=== PATIENT | female | born 1985 | race Caucasian/White ===

== ENCOUNTER 2018-06-11 20:48 | Emergency (ER) | payer MEDICAID ==
[2018-06-11 21:11] LABS: BILIRUBIN,URINE NEGATIVE (NEGATIVE); CLARITY,URINE CLOUDY (CLEAR); GLUCOSE, URINE (UA) NEGATIVE (NEGATIVE); HCG UR QUAL NEGATIVE; KETONES,URINE (UA) NEGATIVE (NEGATIVE); LEUKOCYTE ESTERASE, URINE MODERATE (NEGATIVE); NITRITE,URINE NEGATIVE (NEGATIVE); OCCULT BLOOD,URINE MODERATE (NEGATIVE); PROTEIN,URINE TRACE mg/dL (NEGATIVE); UROBILINOGEN,URINE 1 (NORMAL) E.U./dL (NORMAL)
[2018-06-11 21:15] LABS: BACTERIA,URINE Few /HPF (None Seen); SQUAMOUS EPITHELIAL CELL,UR FEW Squamous (<= Few)
--- NOTE | 2018-06-11 22:38 | ED Physician Documentation ---
PD HPI FEMALE - Stated complaint Stated Complaint: LOW BACK PX - Chief complaint Chief Complaint: Abd Pain - History obtained from History obtained from: Patient - History of Present Illness Timing - onset: Yesterday Timing - details: Gradual onset Pain level max: 8 Associated symptoms: Fever (subjective (sweats, chills, but has not taken temp. at home)), Pelvic pain, Dysuria, Urinary frequency Contributing factors: No: Similar symptoms before: Has not had sx before Recently seen: Not recently seen Review of Systems Constitutional: reports: Fever (subjective), Chills GI: reports: Abdominal Pain (pelvic pain, but not abdominal pain per se), Nausea. denies: Vomiting : reports: Dysuria, Frequency Musculoskeletal: denies: Back pain PD PAST MEDICAL HISTORY - Past Medical History Past Medical History: Yes Cardiovascular: None Respiratory: None Neuro: None Endocrine/Autoimmune: None GI: None RADIOGRAPHIC TECHNOLOGIST: None : Chronic bladder infection HEENT: None Psych: None Musculoskeletal: None Derm: None - Present Medications Home Medications: Ambulatory Orders Medication Instructions Recorded Confirmed Ciprofloxacin HCl [Cipro] 500 mg PO BID #20 tablet 06/12/18 Phenazopyridine [Pyridium] 200 mg PO TID 6 Days tablet 06/12/18 oxyCODONE/ACET 5/325 [Percocet 5 1 - 2 each PO Q6H PRN #14 tablet 06/12/18 mg/325 mg] - Allergies Allergies/Adverse Reactions: Allergies Allergy/AdvReac Type Severity Reaction Status Date / Time No Known Drug Allergies Allergy Verified 06/11/18 20:54 - Social History Does the pt smoke?: No Smoking Status: Never smoker Does the pt drink ETOH?: Yes Does the pt have substance abuse?: No - Immunizations Immunizations are current?: Yes - POLST Patient has POLST: No PD ED PE NORMAL - Vitals Vital signs reviewed: Yes - General General: Alert and oriented X 3, No acute distress, Well developed/nourished - Cardiac Cardiac: RRR, No murmur - Respiratory Respiratory: No respiratory distress, Clear bilaterally - Abdomen Abdomen: Normal bowel sounds, Soft, Non tender, Non distended - Back Back: Other (mild R>L CVA tenderness) - Derm Derm: Normal color, Warm and dry, No rash Results - Vitals Vitals: Oxygen O2 Source Room air - Labs Labs: Microbiology 06/11/18 21:00 Urine Culture - Preliminary Urine,Clean Catch Escherichia Coli Beta Hemolytic Strep Group B Laboratory Tests 06/11/18 21:00 Urine Color YELLOW Urine Clarity CLOUDY Urine pH 8.0 H Ur Specific [place] 1.015 Urine Protein TRACE Urine Glucose (UA) NEGATIVE Urine Ketones NEGATIVE Urine Occult Blood MODERATE H Urine Nitrite NEGATIVE Urine Bilirubin NEGATIVE Urine Urobilinogen 1 (NORMAL) Ur Leukocyte Esterase MODERATE H Urine RBC 6-10 H Urine WBC >25 H Ur Squamous Epith Cells FEW Squamous Urine Bacteria Few Ur Microscopic Review INDICATED Urine Culture Comments INDICATED Urine HCG, Qual NEGATIVE PD MEDICAL DECISION MAKING - ED course Complexity details: reviewed results, re-evaluated patient, considered differential, d/w patient, d/w family - Sepsis Event Vital Signs: Oxygen O2 Source Room air Departure - Departure Disposition: 01 Home, Self Care Clinical Impression: Urinary tract infection Condition: Good Instructions: ED UTI Cystitis Female Prescriptions: Ciprofloxacin HCl [Cipro] 500 mg PO BID #20 tablet oxyCODONE/ACET 5/325 [Percocet 5 mg/325 mg] 1 - 2 each PO Q6H PRN #14 tablet PRN Reason: Pain Phenazopyridine [Pyridium] 200 mg PO TID 6 Days tablet Discharge Date/Time: 06/12/18 01:10
[2018-06-11] MEDS ORDERED: PHENAZOPYRIDINE 100 MG TABLET PO STA (22:53)
[2018-06-11] MEDS ORDERED: KETOROLAC 60 MG/2 ML VIAL IVP STA (22:53)
[2018-06-11] MEDS ORDERED: cefTRIAXone 1 GM in SODIUM CHLORIDE 0.9% MINIBAG 100 ML IV STA (22:53)
[2018-06-11] MEDS ORDERED: MORPHINE 10 MG/ML VIAL IVP STA (22:54)
[2018-06-12] MEDS ORDERED: MORPHINE 10 MG/ML VIAL IVP STA (00:32)
[2018-06-12] MEDS ORDERED: oxyCODONE/ACET 5/325 Prepack 4 PO STA (00:32)
[2018-06-12 01:31] VITALS: BP 168/95
== END 2018-06-12 01:10 | disposition home or self-care (01) ==
LOC: ED 20:48 → EEVIPCON 20:48 → ED 06-12 01:10
DX: N39.0 Urinary tract infection, site not specified (principal)
CPT/HCPCS: 81001; 81025; 87077; 87086; 87181; 96365; 96375; 96376; 99284; A9270; 81003

== ENCOUNTER 2023-02-02 21:22 | Outpatient (CLI) | payer MEDICAID | END 2023-02-02 21:23 | disposition critical access hospital (66) | LOC: EMS 21:22 | DX: I46.9 Cardiac arrest, cause unspecified (principal) | CPT/HCPCS: A0425; A0427; A0999 ==

== ENCOUNTER 2023-02-02 21:45 | Emergency (ER) | payer MEDICAID ==
[2023-02-02] MEDS ORDERED: hydrOXYzine PAMOATE 25 MG CAPSULE PO STA (21:54)
--- NOTE | 2023-02-02 22:10 | ED Physician Documentation ---
History of Present Illness - Stated complaint Stated Complaint: UNRESPONSIVE, CARDIAC ARREST - Chief complaint Chief Complaint: Neuro - History obtained from History obtained from: Patient - Additonal information Additional information: 29-year-old woman with history of substance abuse, TBI and seizure disorder, presents from [facility] addiction treatment facility where she was undergoing treatment for alcohol, benzodiazepines, and fentanyl.Collateral history obtained from EMS as well as from the patient. EMS reports that fentanyl was snuck into the facility tonight and patient was found to be unresponsive by staff, apparently not breathing and with no pulse. CPR was initiated and 911 called. patient quickly regained pulses and then upon ems arrival was given 2mg Intranasal narcan, assisted with ventilation with BVM, then came to full consciousness after IO was established and flushed. Patient now AOX3, stating she is extremely anxious and requesting ativan. no incontinence of urine or sto ol, no tongue biting. no other complaints. PD PAST MEDICAL HISTORY - Past Medical History Cardiovascular: None Respiratory: None Neuro: None Endocrine/Autoimmune: None GI: None SCHOOL BUS AIDE: None : Chronic bladder infection HEENT: None Psych: None Musculoskeletal: None Derm: None - Present Medications Home Medications: Ambulatory Orders Medication Instructions Recorded Confirmed Ciprofloxacin HCl [Cipro] 500 mg PO BID #20 tablet 06/12/18 Phenazopyridine [Pyridium] 200 mg PO TID 6 Days tablet 06/12/18 oxyCODONE/ACET 5/325 [Percocet 5 1 - 2 each PO Q6H PRN #14 tablet 06/12/18 mg/325 mg] - Allergies Allergies/Adverse Reactions: Allergies Allergy/AdvReac Type Severity Reaction Status Date / Time No Known Drug Allergies Allergy Verified 02/02/23 21:54 - Social History Does the pt smoke?: No Smoking Status: Never smoker Does the pt drink ETOH?: Yes Does the pt have substance abuse?: No - Immunizations Immunizations are current?: Yes - POLST Patient has POLST: No PD ED PE NORMAL - Vitals Vital signs reviewed: Yes - General General: Alert and oriented X 3, No acute distress, Other (disheveled appearing) - HEENT HEENT: Atraumatic, PERRL, EOMI, Moist mucous membranes, Pharynx benign - Neck Neck: Supple, no meningeal sign - Cardiac Cardiac: RRR - Respiratory Respiratory: No respiratory distress, Clear bilaterally - Abdomen Abdomen: Non tender, Non distended - Derm Derm: Normal color, Warm and dry - Extremities Extremities: No deformity - Neuro Neuro: No motor deficit, No sensory deficit - Psych Psych: Normal mood, Normal affect Results - Vitals Vitals: Vital Signs - 24 hr 02/02/23 02/02/23 02/02/23 21:50 22:24 22:54 Temperature 37.1 C Heart Rate 72 66 65 Respiratory 18 16 15 Rate Blood Pressure 117/81 H 106/87 H 105/69 O2 Saturation 100 97 100 02/02/23 02/02/23 23:22 23:30 Temperature Heart Rate 66 70 Respiratory 13 15 Rate Blood Pressure 96/65 91/62 O2 Saturation 100 98 Oxygen O2 Source Room air - EKG (time done) 2151 EKG releavant findings:: EKG personally interpreted by author of this note. Relevant findings are: Rate: Rate (enter#) (70) Rhythm: NSR [place]: Normal Intervals: Normal DE QRS: Normal Ischemia: Normal ST segments - Labs Labs: Laboratory Tests 02/02/23 02/02/23 02/02/23 22:18 22:18 22:30 WBC 7.1 RBC 3.51 L Hgb 11.3 L Hct 34.6 L MCV 98.6 MCH 32.2 H MCHC 32.7 RDW 14.1 Plt Count 377 MPV 9.5 Neut # (Auto) 4.0 Lymph # (Auto) 2.3 [place] # (Auto) 0.4 Eos # (Auto) 0.3 Baso # (Auto) 0.1 Absolute Nucleated RBC 0.00 Nucleated RBC % 0.0 Sodium 139 Potassium 4.0 Chloride 109 Carbon Dioxide 24 Anion Gap 6.0 BUN 13 Creatinine 0.7 Estimated GFR (MDRD) 94 Glucose 88 Calcium 8.6 Total Bilirubin 0.3 AST 19 ALT 17 Alkaline Phosphatase 45 Total Protein 6.9 Albumin 3.9 Globulin 3.0 Albumin/Globulin Ratio 1.3 Lipase 44 Urine HCG, Qual Salicylates < 6.0 Urine Opiates Screen NEGATIVE Ur Oxycodone Screen NEGATIVE Urine Methadone Screen NEGATIVE Ur Propoxyphene Screen NEGATIVE Acetaminophen < 10 L Ur Barbiturates Screen NEGATIVE Ur Tricyclics Screen NEGATIVE Ur Phencyclidine Scrn NEGATIVE Ur Amphetamine Screen NEGATIVE U Methamphetamines Scrn NEGATIVE U Benzodiazepines Scrn POSITIVE H Urine Cocaine Screen NEGATIVE U Cannabinoids Screen NEGATIVE Ethyl Alcohol < 5.0 02/02/23 22:30 WBC RBC Hgb Hct MCV MCH MCHC RDW Plt Count MPV Neut # (Auto) Lymph # (Auto) [place] # (Auto) Eos # (Auto) Baso # (Auto) Absolute Nucleated RBC Nucleated RBC % Sodium Potassium Chloride Carbon Dioxide Anion Gap BUN Creatinine Estimated GFR (MDRD) Glucose Calcium Total Bilirubin AST ALT Alkaline Phosphatase Total Protein Albumin Globulin Albumin/Globulin Ratio Lipase Urine HCG, Qual NEGATIVE Salicylates Urine Opiates Screen Ur Oxycodone Screen Urine Methadone Screen Ur Propoxyphene Screen Acetaminophen Ur Barbiturates Screen Ur Tricyclics Screen Ur Phencyclidine Scrn Ur Amphetamine Screen U Methamphetamines Scrn U Benzodiazepines Scrn Urine Cocaine Screen U Cannabinoids Screen Ethyl Alcohol Procedures - General procedure General procedure: Intraosseous was removed from leg without incident. gauze and Coban placed. PD Medical Decision Making - ED course ED course: 29yF p/w brief unresponsive episode at her addiction treatment facility. Suspect fentanyl overdose. seizure episode considered but less likely given no tongue biting, incontinence, and patient was fully alert on scene, not displaying post- ictal confusion per ems report. plan to evaluate cbc, abdominal panel, tox labs, urine hcg and urine tox studies as well as ekg and cxr. CBC and abdominal panel impressive only for some mild anemia with hb 11.3. no prior labs available. utox showed benzodiazepines which patient has been receiving at facility. fentanyl does not show up on u tox so it remains on the differential. ekg NSR. chest xray interpreted independently by myself and outside radiologist and no evidence of cardiopulmonary disease. at this time I will be discharging the patient to f/u outpatient. return precautions given. Departure - Departure Disposition: 01 Home, Self Care Clinical Impression: Unresponsive episode, Anemia Condition: Stable Instructions: Addiction Get Help Comments: You were seen in the emergency department for medical evaluation after an unresponsive episode. Your lab work uncovered no Issues except for some mild anemia (hemoglobin 11.3.). You should follow-up with your primary care provider in regards to this. Please also follow-up for addiction treatment management.Return to the emergency department if you have new or worsening symptoms or other concerns.
[2023-02-02 22:22] LABS: BASOPHILS # (AUTO) 0.1 10^3/uL (0.0-0.1); BASOPHILS % (AUTO) 0.7 %; EOSINOPHILS # (AUTO) 0.3 10^3/uL (0.0-0.7); EOSINOPHILS % (AUTO) 3.7 %; HCT - HEMATOCRIT 34.6 % (37.0-47.0); HGB - HEMOGLOBIN 11.3 g/dL (12.0-16.0); LYMPHOCYTES # (AUTO) 2.3 10^3/uL (1.5-3.5); MEAN CORPUSCULAR HEMOGLOBIN 32.2 pg (27.0-31.0); MEAN CORPUSCULAR HGB CONC 32.7 g/dL (32.0-36.0); MEAN CORPUSCULAR VOLUME 98.6 fL (81.0-99.0); MEAN PLATELET VOLUME 9.5 fL (7.9-10.8); MONOCYTES # (AUTO) 0.4 10^3/uL (0.0-1.0); NEUTROPHILS % (AUTO) 56.5 %; PLT - PLATELET COUNT 377 10^3/uL (130-450); RED BLOOD COUNT 3.51 10^6/uL (4.20-5.40); RED CELL DISTRIBUTION WIDTH 14.1 % (12.0-15.0); WHITE BLOOD COUNT 7.1 x10^3/uL (4.8-10.8)
[2023-02-02 22:37] LABS: ACETAMINOPHEN < 10 ug/mL (10-30); ALBUMIN 3.9 g/dL (3.2-5.5); ALBUMIN/GLOBULIN RATIO 1.3 (1.0-2.2); ALKALINE PHOSPHATASE 45 IU/L (42-121); ALT ALANINE AMINOTRANSFERASE 17 IU/L (10-60); AST ASPARTATE AMINOTRANSFERASE 19 IU/L (10-42); BILIRUBIN,TOTAL 0.3 mg/dL (0.2-1.0); BUN - BLOOD UREA NITROGEN 13 mg/dL (6-20); CALCIUM 8.6 mg/dL (8.5-10.3); CARBON DIOXIDE - CO2 24 mmol/L (21-32); CHLORIDE 109 mmol/L (101-111); CREATININE 0.7 mg/dL (0.4-1.0); ETOH - ETHANOL < 5.0 mg/dL; GFR - MDRD 94 (>89); GLUCOSE 88 mg/dL (70-100); LIPASE 44 U/L (22-51); SALICYLATE < 6.0 mg/dL; SODIUM 139 mmol/L (135-145); TOTAL PROTEIN 6.9 g/dL (6.7-8.2)
--- NOTE | 2023-02-02 22:41 | XRAY Report ---
PROCEDURE: Chest 1 View X-Ray INDICATIONS: s/p chest compressions TECHNIQUE: One view of the chest was acquired. COMPARISON: None. FINDINGS: Surgical changes and devices: None. Lungs and pleura: No pleural effusions or pneumothorax. There are a few linear opacities in the lung bases likely representing atelectasis. Mediastinum: Mediastinal contours appear normal. Heart size is normal. Bones and chest wall: No displaced rib fracture identified. No suspicious bony lesions. Overlying s oft tissues appear unremarkable. IMPRESSION: 1. Probable mild atelectasis in the lung bases. 2. No displaced rib fracture identified. Reviewed by: Hermelindo Marlow MD on 02/02/2023 10:40 PM PDT Approved by: Hermelindo Marlow MD on 02/02/2023 10:40 PM PDT Station ID: [id number]
[2023-02-02 22:54] LABS: MUDS CUTOFF CONCENTRATIONS CUTOFF CONC BELOW:
[2023-02-02 22:58] LABS: HCG UR QUAL NEGATIVE
[2023-02-02 23:06] LABS: AMPHETAMINE SCREEN,URINE NEGATIVE (NEGATIVE); BARBITURATE SCREEN,UR NEGATIVE (NEGATIVE); BENZODIAZEPINES SCREEN, URINE POSITIVE (NEGATIVE); COCAINE SCREEN URINE NEGATIVE (NEGATIVE); METHADONE SCREEN, URINE NEGATIVE (NEGATIVE); METHAMPHETAMINES SCREEN, URINE NEGATIVE (NEGATIVE); OPIATE SCREEN, URINE NEGATIVE (NEGATIVE); OXYCODONE SCREEN, URINE NEGATIVE (NEGATIVE); PROPOXYPHENE SCREEN, URINE NEGATIVE (NEGATIVE); THC CANNABINOID SCREEN, URINE NEGATIVE (NEGATIVE); TRICYCLIC ANTIDEPRESSANT,URINE NEGATIVE (NEGATIVE)
[2023-02-03] MEDS ORDERED: LORazepam 1 MG TABLET PO STA (00:42)
[2023-02-03 01:28] VITALS: BP 106/77
== END 2023-02-03 01:20 | disposition home or self-care (01) ==
LOC: EDUNIT# → ED 21:45
DX: R40.4 Transient alteration of awareness (principal); D64.9 Anemia, unspecified; G40.909 Epilepsy, unspecified, not intractable, without status epilepticus
CPT/HCPCS: 36415; 71045; 80053; 80306; 80307; 80320; 80329; 81025; 83690; 85025; 93005; 99284; A9270; J8499